=== PATIENT | male | born 1965 | race African-American/Black ===

== ENCOUNTER 2016-07-07 13:17 | Inpatient (IN) | payer OTHER ==
[~2016-07-07] VITALS: Ht 180.3 cm; Wt 111.8 kg
[2016-07-07 13:30] VITALS: BP 155/91
[2016-07-07] MEDS ORDERED: PredniSONE 20mg tab ORAL ONE (13:30)
[2016-07-07] MEDS ORDERED: Ipratropium 0.02% Inh Soln 2.5ml UD HHN ONE (13:30)
[2016-07-07] MEDS ORDERED: Albuterol ud Inhalation HHN ONE (13:30)
--- NOTE | 2016-07-07 13:30 | Emergency Room Report ---
History of Present Illness General Chief Complaint: Dyspnea/Respdistress Source: Patient (RICHARDSON BALDERAS D.O.) Present Illness HPI Patient presents with complaints of shortness of breath Reports that he has been diagnosed with COPD in the past Has had increased cough and mild sputum production over the past few days Denies any chest pain or pleurisy denies any recent travel denies any fevers or chills Denies any neck pain or photophobia (RICHARDSON BALDERAS D.O.) Allergies: Coded Allergies: No Known Allergies (Unverified , 07/07/16) Patient History Past Medical History: see triage record Pertinent Family History: none Reviewed Nursing Documentation: PMH: Agreed, PSxH: Agreed (RICHARDSON BALDERAS D.O.) Nursing Documentation-PMH Past Medical History: No Stated History (RICHARDSON BALDERAS D.O.) Review of Systems All Other Systems: negative except mentioned in HPI (RICHARDSON BALDERAS D.O.) Physical Exam Vital Signs Date Time Temp Pulse Resp B/P Pulse Ox O2 Delivery O2 Flow Rate FiO2 07/07/16 13:22 98.4 101 21 148/105 98 Room Air Sp02 EP Interpretation: reviewed, normal General Appearance: well appearing, no apparent distress Head: normocephalic, atraumatic Eyes: bilateral eye EOMI, bilateral eye PERRL ENT: hearing grossly normal, normal pharynx, TMs + canals normal, uvula midline Neck: full range of motion, supple, no meningismus, no bony tend Respiratory: no rhonchi, no respiratory distress, no retraction, no accessory muscle use, wheezing - Fine wheezing in both lower lobes no obvious retractions Cardiovascular #1: normal peripheral pulses, regular rate, rhythm, no edema, no gallop, no JVD, no murmur Gastrointestinal: normal bowel sounds, non tender, soft, no mass, no organomegaly, non-distended, no guarding, no hernia, no pulsatile mass, no rebound Genitourinary: no CVA tenderness Neurologic: oriented x3, responsive, geography department chair III-XII nml as tested, motor strength/ tone normal, sensory intact Psychiatric: mood/affect normal Skin: normal color, no rash, warm/dry, palpation normal Lymphatic: normal inspection, no adenopathy (JAMEHDOR,ALI D.O.) Medical Decision Making Diagnostic Impression: Primary Impression: CHF exacerbation Qualified Codes: I50.9 - Heart failure, unspecified Additional Impression: Substance abuse ER Course Hospital Course 51-year-old male presents ED complaining of shortness of breath Clinical course Patient initially seen and evaluated by Dr Balderas. Please see his note for full history and physical labs reviewed- noted leukocytosis, hemoglobin/hematocrit stable, creatinine elevated, troponins negative, BNP elevated utox + multiple substances Chest x-ray- cardiomegaly, left-sided atelectasis Antibiotics given. Lasix given. Case discussed with Dr. Bui and he agreed to accept the patient to his service for further care and support I. I feel this is a highly complex case requiring extensive working including EKG/Rhythm strip, Xray/CT/US, Blood/urine lab work, repeat exams while in ED, and administration of strong opiates/narcotics for pain control, admission to hospital or close patient follow up. Diagnosis - CHF exacerbation, substance abuse admitted to telemetry in serious condition Labs Test 07/07/16 14:43 07/07/16 14:49 White Blood Count 14.9 K/UL (4.8-10.8) Red Blood Count 4.91 M/UL (4.70-6.10) Hemoglobin 14.0 G/DL (14.2-18.0) Hematocrit 45.9 % (42.0-52.0) Mean Corpuscular Volume 93 FL (80-99) Mean Corpuscular Hemoglobin 28.6 PG (27.0-31.0) Mean Corpuscular Hemoglobin Concent 30.6 G/DL (32.0-36.0) Red Cell Distribution Width 14.7 % (11.6-14.8) Platelet Count 319 K/UL (150-450) Mean Platelet Volume 7.7 FL (6.5-10.1) Neutrophils (%) (Auto) 67.8 % (45.0-75.0) Lymphocytes (%) (Auto) 21.6 % (20.0-45.0) Monocytes (%) (Auto) 8.3 % (1.0-10.0) Eosinophils (%) (Auto) 1.7 % (0.0-3.0) Basophils (%) (Auto) 0.6 % (0.0-2.0) Sodium Level 138 mEQ/L (135-145) Potassium Level 3.6 mEQ/L (3.4-4.9) Chloride Level 99 mEQ/L (98-107) Carbon Dioxide Level 24 mEQ/L (20-30) Anion Gap 15 (5-15) Blood Urea Nitrogen 10 mg/dL (7-23) Creatinine 1.0 mg/dL (0.7-1.2) Estimat Glomerular Filtration Rate > 60 mL/min (>60) Glucose Level 109 mg/dL (74-106) Calcium Level 8.6 mg/dL (8.6-10.2) Total Bilirubin 0.4 mg/dL (0.0-1.2) Aspartate Amino Transf (AST/SGOT) 15 U/L (5-40) Alanine Aminotransferase (ALT/SGPT) 10 U/L (3-41) Alkaline Phosphatase 85 U/L (40-129) Total Creatine Kinase 353 U/L (38-174) Creatine Kinase MB 3.9 ng/mL (< 6.7) Creatine Kinase MB Relative Index 1.1 Troponin I < 0.30 ng/mL (<=0.30) Pro-B-Type Natriuretic Peptide 1495 pg/mL (0-125) Total Protein 7.3 g/dL (6.6-8.7) Albumin 3.6 g/dL (3.5-5.2) Globulin 3.7 g/dL Albumin/Globulin Ratio 0.9 (1.0-2.7) Urine Opiates Screen Negative (NEGATIVE) Urine Barbiturates Screen Negative (NEGATIVE) Phencyclidine (PCP) Screen Positive (NEGATIVE) Urine Amphetamines Screen Positive (NEGATIVE) Urine Benzodiazepines Screen Negative (NEGATIVE) Urine Cocaine Screen Negative (NEGATIVE) Urine Marijuana (THC) Screen Positive (NEGATIVE) (BENEDICT MARCOS M.D.) EKG Diagnostic Results Rate: normal Rhythm: NSR ST Segments: no acute changes ASA given to the pt in ED: No (BENEDICT MARCOS M.D.) Rhythm Strip Diag. Results EP Interpretation: yes Rhythm: NSR, no PVC's, no ectopy (BENEDICT MARCOS M.D.) Chest X-Ray Diagnostic Results EP Interpretation: No Findings: no pneumothorax, no acute cardiopulmonary disease, other - cardiomegaly. atelectasis. Number of Views: 1 (BENEDICT MARCOS M.D.) Last Vital Signs Date Time Temp Pulse Resp B/P Pulse Ox O2 Delivery O2 Flow Rate FiO2 07/07/16 13:22 98.4 101 21 148/105 98 Room Air (RICHARDSON BALDERAS D.O.) Status: improved (BENEDICT MARCOS M.D.) Disposition: ADMITTED INPATIENT Condition: Serious RICHARDSON BALDERAS D.O. Jul 07, 2016 13:30 BENEDICT MARCOS M.D. Jul 07, 2016 17:17
--- NOTE | 2016-07-07 14:34 | Diagnostic Imaging Report ---
Indication: SOB Technique: One view of the chest Comparison: none Findings: Heart is enlarged. Atelectatic changes of the left midlung are noted. Lungs and pleural spaces are otherwise clear Impression: Cardiomegaly No acute process
[2016-07-07 14:58] LABS: BASOPHILS % (AUTO) 0.6 % (0.0-2.0); EOSINOPHILS % (AUTO) 1.7 % (0.0-3.0); LYMPHOCYTES % (AUTO) 21.6 % (20.0-45.0); MEAN CORPUSCULAR HEMOGLOBIN 28.6 PG (27.0-31.0); MEAN CORPUSCULAR HGB CONC 30.6 G/DL (32.0-36.0); MEAN CORPUSCULAR VOLUME 93 FL (80-99); MEAN PLATELET VOLUME 7.7 FL (6.5-10.1); MONOCYTES % (AUTO) 8.3 % (1.0-10.0); NEUTROPHILS % (AUTO) 67.8 % (45.0-75.0); PLATELET COUNT 319 K/UL (150-450); RED BLOOD COUNT 4.91 M/UL (4.70-6.10); RED CELL DISTRIBUTION WIDTH 14.7 % (11.6-14.8); WHITE BLOOD COUNT 14.9 K/UL (4.8-10.8)
[2016-07-07 15:10] LABS: ALANINE AMINOTRANSFERASE 10 U/L (3-41); ALBUMIN/GLOBULIN RATIO 0.9 (1.0-2.7); ANION GAP 15 (5-15); ASPARTATE AMINO TRANSFERASE 15 U/L (5-40); CALCIUM 8.6 mg/dL (8.6-10.2); CARBON DIOXIDE 24 mEQ/L (20-30); CHLORIDE 99 mEQ/L (98-107); GLOMERULAR FILTRATION RATE > 60 mL/min (>60); HEMOLYSIS 3; POTASSIUM 3.6 mEQ/L (3.4-4.9); SODIUM 138 mEQ/L (135-145); TOTAL PROTEIN 7.3 g/dL (6.6-8.7); TROPONIN I < 0.30 ng/mL (<=0.30)
[2016-07-07 15:21] LABS: CKMB 3.9 ng/mL (< 6.7)
[2016-07-07 16:04] VITALS: BP 160/90
[2016-07-07] MEDS ORDERED: DuoNeb 0.5-3(2.5)mg/3ml neb HHN PRN (16:45)
[2016-07-07] MEDS ORDERED: Miralax 17gm pkt ORAL PRN (16:45)
[2016-07-07] MEDS ORDERED: NKM (16:53)
[2016-07-07 18:10] VITALS: BP 158/89
[2016-07-07 20:00] VITALS: BP 150/106
[2016-07-07] MEDS: Heparin 5000 units/ml inj SUBQ SCH (21:00)
--- NOTE | 2016-07-07 22:24 | Cardiology Progress Note ---
Assessment/Plan Assessment/Plan The patient is seen and examined, full consult note will be dictated. Objective Last 24 Hour Vital Signs Date Time Temp Pulse Resp B/P Pulse Ox O2 Delivery O2 Flow Rate FiO2 07/07/16 18:10 96.6 89 20 158/89 100 Room Air 07/07/16 17:45 102 22 150/128 99 Room Air 07/07/16 16:04 104 37 160/90 100 Room Air 07/07/16 13:50 97 38 100 Room Air 07/07/16 13:50 100 20 Room Air 07/07/16 13:30 97.6 99 33 155/91 100 Room Air 07/07/16 13:30 99 33 Room Air 07/07/16 13:22 98.4 101 21 148/105 98 Room Air Laboratory Tests Test 07/07/16 14:43 07/07/16 14:49 White Blood Count 14.9 K/UL (4.8-10.8) H Red Blood Count 4.91 M/UL (4.70-6.10) Hemoglobin 14.0 G/DL (14.2-18.0) L Hematocrit 45.9 % (42.0-52.0) Mean Corpuscular Volume 93 FL (80-99) Mean Corpuscular Hemoglobin 28.6 PG (27.0-31.0) Mean Corpuscular Hemoglobin Concent 30.6 G/DL (32.0-36.0) L Red Cell Distribution Width 14.7 % (11.6-14.8) Platelet Count 319 K/UL (150-450) Mean Platelet Volume 7.7 FL (6.5-10.1) Neutrophils (%) (Auto) 67.8 % (45.0-75.0) Lymphocytes (%) (Auto) 21.6 % (20.0-45.0) Monocytes (%) (Auto) 8.3 % (1.0-10.0) Eosinophils (%) (Auto) 1.7 % (0.0-3.0) Basophils (%) (Auto) 0.6 % (0.0-2.0) Sodium Level 138 mEQ/L (135-145) Potassium Level 3.6 mEQ/L (3.4-4.9) Chloride Level 99 mEQ/L (98-107) Carbon Dioxide Level 24 mEQ/L (20-30) Anion Gap 15 (5-15) Blood Urea Nitrogen 10 mg/dL (7-23) Creatinine 1.0 mg/dL (0.7-1.2) Estimat Glomerular Filtration Rate > 60 mL/min (>60) Glucose Level 109 mg/dL (74-106) H Calcium Level 8.6 mg/dL (8.6-10.2) Total Bilirubin 0.4 mg/dL (0.0-1.2) Aspartate Amino Transf (AST/SGOT) 15 U/L (5-40) Alanine Aminotransferase (ALT/SGPT) 10 U/L (3-41) Alkaline Phosphatase 85 U/L (40-129) Total Creatine Kinase 353 U/L (38-174) H Creatine Kinase MB 3.9 ng/mL (< 6.7) Creatine Kinase MB Relative Index 1.1 Troponin I < 0.30 ng/mL (<=0.30) Pro-B-Type Natriuretic Peptide 1495 pg/mL (0-125) H Total Protein 7.3 g/dL (6.6-8.7) Albumin 3.6 g/dL (3.5-5.2) Globulin 3.7 g/dL Albumin/Globulin Ratio 0.9 (1.0-2.7) L Urine Opiates Screen Negative (NEGATIVE) Urine Barbiturates Screen Negative (NEGATIVE) Phencyclidine (PCP) Screen Positive (NEGATIVE) H Urine Amphetamines Screen Positive (NEGATIVE) H Urine Benzodiazepines Screen Negative (NEGATIVE) Urine Cocaine Screen Negative (NEGATIVE) Urine Marijuana (THC) Screen Positive (NEGATIVE) H BARTOLO CARREON Jul 07, 2016 22:23
[2016-07-08] VITALS (7 sets, daily range): BP systolic 84–162; BP diastolic 46–98
[2016-07-08 08:06] LABS: BASOPHILS % (AUTO) 0.5 % (0.0-2.0); EOSINOPHILS % (AUTO) 0.2 % (0.0-3.0); LYMPHOCYTES % (AUTO) 10.4 % (20.0-45.0); MEAN CORPUSCULAR HEMOGLOBIN 29.3 PG (27.0-31.0); MEAN CORPUSCULAR HGB CONC 31.9 G/DL (32.0-36.0); MEAN CORPUSCULAR VOLUME 92 FL (80-99); MEAN PLATELET VOLUME 7.7 FL (6.5-10.1); MONOCYTES % (AUTO) 6.6 % (1.0-10.0); NEUTROPHILS % (AUTO) 82.3 % (45.0-75.0); PLATELET COUNT 310 K/UL (150-450); RED BLOOD COUNT 4.85 M/UL (4.70-6.10); RED CELL DISTRIBUTION WIDTH 14.3 % (11.6-14.8); WHITE BLOOD COUNT 17.6 K/UL (4.8-10.8)
[2016-07-08 08:52] LABS: ANION GAP 18 (5-15); CALCIUM 9.1 mg/dL (8.6-10.2); CARBON DIOXIDE 24 mEQ/L (20-30); CHLORIDE 100 mEQ/L (98-107); CREATININE 1.2 mg/dL (0.7-1.2); GLOMERULAR FILTRATION RATE > 60 mL/min (>60); HEMOLYSIS 5; POTASSIUM 3.2 mEQ/L (3.4-4.9); SODIUM 142 mEQ/L (135-145)
[2016-07-08] MEDS: Heparin 5000 units/ml inj SUBQ SCH ×2 (09:24→22:07)
--- NOTE | 2016-07-08 12:14 | Consultation ---
History of Present Illness General Date patient seen: Jul 08, 2016 Chief Complaint: Dyspnea/Respdistress Referring physician: Dr. Bui Reason for Consultation: dyspnea Present Illness HPI 51 year old male with hx of COPD, CHF presented to ER with complaints of shortness of breath cough and mild sputum production over the past few days Denies any chest pain or pleurisy denies any recent travel denies any fevers or chills. His CXR showed cardiomegaly and pulmonary edema. Allergies: Coded Allergies: No Known Allergies (Unverified , 07/07/16) Medication History Scheduled No Known Medications* (NKM - No Known Medications*), 0 ., (Reported) Patient History Healthcare decision maker Resuscitation status Advanced Directive on File Past Medical/Surgical History Past Medical/Surgical History: (1) COPD (chronic obstructive pulmonary disease) (2) Substance abuse Review of Systems Respiratory: Reports: shortness of breath, sputum All Other Systems: negative except mentioned in HPI Physical Exam General Appearance: WD/WN, no apparent distress Lines, tubes and drains: peripheral HEENT: normocephalic, atraumatic Neck: non-tender, normal alignment Respiratory/Chest: rhonchi - bilaterally Cardiovascular/Chest: normal peripheral pulses, normal rate, regular rhythm Abdomen: normal bowel sounds Genitourinary/Rectal: normal genital exam, normal rectal exam Extremities: normal range of motion, non-tender Skin Exam: normal pigmentation, warm/dry Last 24 Hour Vital Signs Date Time Temp Pulse Resp B/P Pulse Ox O2 Delivery O2 Flow Rate FiO2 07/08/16 11:44 118/62 07/08/16 11:20 97.2 89 20 118/62 96 Room Air 07/08/16 09:26 93/53 07/08/16 07:50 93/53 07/08/16 07:40 98.1 71 20 84/46 95 Room Air 07/08/16 06:10 162/98 07/08/16 05:51 155/98 07/08/16 00:00 159/98 07/08/16 00:00 98.0 100 20 155/98 95 Room Air 07/07/16 20:00 98.2 101 20 150/106 96 Room Air 07/07/16 18:10 96.6 89 20 158/89 100 Room Air 07/07/16 17:45 102 22 150/128 99 Room Air 07/07/16 16:04 104 37 160/90 100 Room Air 07/07/16 13:50 97 38 100 Room Air 07/07/16 13:50 100 20 Room Air 07/07/16 13:30 97.6 99 33 155/91 100 Room Air 07/07/16 13:30 99 33 Room Air 07/07/16 13:22 98.4 101 21 148/105 98 Room Air Intake and Output 07/07/16 07/08/16 19:00 07:00 Intake Total 100 ml 400 ml Output Total 1900 ml 2600 ml Balance -1800 ml -2200 ml Intake Oral 100 ml Other 400 ml Output Urine Total 1900 ml 2600 ml Laboratory Tests Test 07/07/16 14:43 07/07/16 14:49 07/08/16 06:25 White Blood Count 14.9 K/UL (4.8-10.8) H 17.6 K/UL (4.8-10.8) H Red Blood Count 4.91 M/UL (4.70-6.10) 4.85 M/UL (4.70-6.10) Hemoglobin 14.0 G/DL (14.2-18.0) L 14.2 G/DL (14.2-18.0) Hematocrit 45.9 % (42.0-52.0) 44.5 % (42.0-52.0) Mean Corpuscular Volume 93 FL (80-99) 92 FL (80-99) Mean Corpuscular Hemoglobin 28.6 PG (27.0-31.0) 29.3 PG (27.0-31.0) Mean Corpuscular Hemoglobin Concent 30.6 G/DL (32.0-36.0) L 31.9 G/DL (32.0-36.0) L Red Cell Distribution Width 14.7 % (11.6-14.8) 14.3 % (11.6-14.8) Platelet Count 319 K/UL (150-450) 310 K/UL (150-450) Mean Platelet Volume 7.7 FL (6.5-10.1) 7.7 FL (6.5-10.1) Neutrophils (%) (Auto) 67.8 % (45.0-75.0) 82.3 % (45.0-75.0) H Lymphocytes (%) (Auto) 21.6 % (20.0-45.0) 10.4 % (20.0-45.0) L Monocytes (%) (Auto) 8.3 % (1.0-10.0) 6.6 % (1.0-10.0) Eosinophils (%) (Auto) 1.7 % (0.0-3.0) 0.2 % (0.0-3.0) Basophils (%) (Auto) 0.6 % (0.0-2.0) 0.5 % (0.0-2.0) Sodium Level 138 mEQ/L (135-145) 142 mEQ/L (135-145) Potassium Level 3.6 mEQ/L (3.4-4.9) 3.2 mEQ/L (3.4-4.9) L Chloride Level 99 mEQ/L (98-107) 100 mEQ/L (98-107) Carbon Dioxide Level 24 mEQ/L (20-30) 24 mEQ/L (20-30) Anion Gap 15 (5-15) 18 (5-15) H Blood Urea Nitrogen 10 mg/dL (7-23) 18 mg/dL (7-23) Creatinine 1.0 mg/dL (0.7-1.2) 1.2 mg/dL (0.7-1.2) Estimat Glomerular Filtration Rate > 60 mL/min (>60) > 60 mL/min (>60) Glucose Level 109 mg/dL (74-106) H 103 mg/dL (74-106) Calcium Level 8.6 mg/dL (8.6-10.2) 9.1 mg/dL (8.6-10.2) Total Bilirubin 0.4 mg/dL (0.0-1.2) Aspartate Amino Transf (AST/SGOT) 15 U/L (5-40) Alanine Aminotransferase (ALT/SGPT) 10 U/L (3-41) Alkaline Phosphatase 85 U/L (40-129) Total Creatine Kinase 353 U/L (38-174) H Creatine Kinase MB 3.9 ng/mL (< 6.7) Creatine Kinase MB Relative Index 1.1 Troponin I < 0.30 ng/mL (<=0.30) Pro-B-Type Natriuretic Peptide 1495 pg/mL (0-125) H Total Protein 7.3 g/dL (6.6-8.7) Albumin 3.6 g/dL (3.5-5.2) 3.5 g/dL (3.5-5.2) Globulin 3.7 g/dL Albumin/Globulin Ratio 0.9 (1.0-2.7) L Urine Opiates Screen Negative (NEGATIVE) Urine Barbiturates Screen Negative (NEGATIVE) Phencyclidine (PCP) Screen Positive (NEGATIVE) H Urine Amphetamines Screen Positive (NEGATIVE) H Urine Benzodiazepines Screen Negative (NEGATIVE) Urine Cocaine Screen Negative (NEGATIVE) Urine Marijuana (THC) Screen Positive (NEGATIVE) H Phosphorus Level 3.0 mg/dL (2.5-4.8) Height (Feet): 5 Height (Inches): 10.00 Weight (Pounds): 240 Medications Current Medications Medications (Trade) Dose Ordered Sig/Mer Route PRN Reason Start Time Stop Time Status Last Admin Dose Admin Acetaminophen (Tylenol) 650 mg Q4H PRN ORAL Fever 07/07/16 16:45 08/06/16 16:44 Albuterol/ Ipratropium (DuoNeb 0.5-3(2.5)mg/3ml) 3 ml EVERY 4 HOURS PRN HHN Shortness of Breath 07/07/16 16:45 07/12/16 16:44 Clonidine HCl (Catapres) 0.1 mg Q6H PRN ORAL For High Blood Pressure 07/08/16 06:45 08/07/16 06:44 Dextrose (Dextrose 50%) STAT PRN IV Hypoglycemia 07/07/16 16:45 08/06/16 16:44 Furosemide (Lasix) 40 mg EVERY 8 HOURS IV 07/07/16 22:00 08/06/16 21:59 07/08/16 05:52 Heparin Sodium (Porcine) (Heparin 5000 units/ml) 5,000 units EVERY 12 HOURS SUBQ 07/07/16 21:00 08/06/16 20:59 07/08/16 09:24 Irbesartan (Avapro) 75 mg DAILY ORAL 07/08/16 09:00 08/07/16 08:59 07/08/16 09:26 Isosorbide Dinitrate (Isordil) 10 mg Q6HR ORAL 07/08/16 00:00 08/07/16 00:00 07/08/16 11:44 Ondansetron HCl (Zofran) 4 mg Q6H PRN IVP Nausea & Vomiting 07/07/16 16:45 08/06/16 16:44 Polyethylene Glycol (Miralax) 17 gm DAILYPRN PRN ORAL Constipation 07/07/16 16:45 08/06/16 16:44 Temazepam (Restoril) 15 mg HSPRN PRN ORAL Insomnia 07/07/16 16:45 07/14/16 16:44 Assessment/Plan Problem List: (1) Respiratory failure, acute ICD Codes: J96.00 - Acute respiratory failure, unspecified whether with hypoxia or hypercapnia SNOMED: 69116248 (2) CHF exacerbation ICD Codes: I50.9 - Heart failure, unspecified SNOMED: 55716939 Qualifiers: Qualified Codes: I50.9 - Heart failure, unspecified (3) COPD (chronic obstructive pulmonary disease) ICD Codes: J44.9 - Chronic obstructive pulmonary disease, unspecified SNOMED: 06280583 (4) Substance abuse ICD Codes: F19.10 - Other psychoactive substance abuse, uncomplicated SNOMED: 60010607 Assessment/Plan respiratory treatment IV antibiotic echocardiogram check sputum cardiology evaluation RIVER CHAUDHARI Jul 08, 2016 12:13
[2016-07-08] MEDS ORDERED: Promethazine/Codeine 5ml UD ORAL PRN (12:15)
--- NOTE | 2016-07-08 16:12 | General Progress Note ---
Progress Note Progress Note patient seen and examined full consult dictated [id number] ANETTE CHOWDHURY Jul 08, 2016 16:12
[2016-07-08 17:55] LABS: TROPONIN I < 0.30 ng/mL (<=0.30)
--- NOTE | 2016-07-08 21:48 | History and Physical Report ---
DATE OF ADMISSION: 07/07/2016 TIME SEEN: At 10 a.m. ATTENDING PHYSICIAN: Shadi Bui D.O. CONSULTANTS: 1. Brian Sargent M.D. 2. Marisabel Hartman M.D. CHIEF COMPLAINT: Shortness of breath. BRIEF HISTORY: This is a 51-year-old male who lives at home, presented to [facility] with increased shortness of breath, diagnosed with CHF exacerbation and hypertension, admitted to telemetry for further care. Currently, calm in his bed, . No complaint otherwise. REVIEW OF SYSTEMS: No chest pain. No shortness of breath. No nausea, vomiting, or diarrhea. PAST MEDICAL HISTORY: Hypertension and CHF. PAST SURGICAL HISTORY: None. MEDICATIONS: Include , Catapres, Isordil, Lasix, Restoril, MiraLax, Tylenol, Zofran, and DuoNeb. ALLERGIES: Denies. SOCIAL HISTORY: Positive smoking. Positive alcohol. Positive methamphetamine use. PHYSICAL EXAMINATION: GENERAL: Calm in bed, oriented x3, in no acute distress. VITAL SIGNS: Temperature is 98 degrees, pulse 81, respirations 18, and blood pressure 93/52. CARDIOVASCULAR: No murmur. LUNGS: Poor air exchange. ABDOMEN: Positive bowel sound. Nontender and nondistended. EXTREMITIES: No edema. LABORATORY AND DIAGNOSTIC DATA: White count 17, otherwise CBC is normal. BMP showed potassium 3.2. Urine toxicology is positive for phencyclidine, amphetamine, and marijuana. ASSESSMENT: 1. Congestive heart failure exacerbation. 2. Shortness of breath 3. Hypertension. 4. Drug abuse. PLAN: O2 and pulmonary treatment. Blood pressure control. Dietary follow. CBC and BMP in the morning. Detoxification. Dr. Hartman, Dr. Sargent, Dr. Olivares, and Dr. Lawson to consult. Shadi Bui D.O. DR: Carlos JOB#: [id number] CC:
[2016-07-09] VITALS (7 sets, daily range): BP systolic 92–134; BP diastolic 58–76
--- NOTE | 2016-07-09 05:08 | Consultation ---
DATE OF CONSULTATION: 07/08/2016 NEPHROLOGY CONSULTATION CONSULTING PHYSICIAN: Svetlana Olivares M.D. REFERRING PHYSICIAN: Shadi Bui D.O. REASON FOR CONSULTATION: Acute renal failure and hypokalemia. HISTORY OF PRESENT ILLNESS: The patient is a 51-year-old male with past medical history significant for COPD, CHF, and substance abuse, who presented to emergency room complaining of increasing shortness of breath and orthopnea had a complete evaluation, found to have atelectasis and found to be hypoxic. The patient received IV antibiotic and received a breathing treatment and a dose of Lasix treatment. Later on, the patient was admitted in the hospital. I was called for management of renal disease and electrolyte imbalance. PAST MEDICAL HISTORY: Includin. History of polysubstance abuse. 2. History of CHF. 3. History of COPD. 4. History of heart disease. HOME MEDICATIONS: None. CURRENT MEDICATIONS: Includin. Albuterol and Atrovent p.r.n. shortness of breath. 2. Lasix. 3. Heparin. 4. Avapro. 5. Isordil. 6. Levaquin. 7. Zofran. 8. MiraLax. 9. Promethazine. 10. Restoril. ALLERGIES: Not known drug allergies. FAMILY HISTORY: Negative for any history of premature heart disease. REVIEW OF SYSTEMS: General: Complaining of generalized weakness. Denied any fever, chills, or night sweats. Head And Neck: Denies any dysphagia, odynophagia, blurry vision, headache, or neck stiffness. Pulmonary: Complaining of shortness of breath. No cough. No sputum. Cardiovascular: Complaining of shortness of breath, orthopnea, PND, and leg swelling. Gastrointestinal: Denied any nausea, vomiting, diarrhea, hematemesis, or hematochezia. Genitourinary: Denies any dysuria, frequency, or hematuria. Musculoskeletal: He is complaining of generalized weakness. Denies any localized weakness or numbness. PHYSICAL EXAMINATION: VITAL SIGNS: The patient has temperature of 97 degrees, blood pressure of 115/78, pulse is 94, and respiratory rate of 18. HEENT AND NECK: No JVP. No LAD. No thyromegaly. Extraocular movement intact. Pupils are reactive to light and accommodation. LUNGS: Decreased breathing sounds on both sides. CARDIAC: Regular rate and rhythm. S1 and S2. No murmur. No rub. ABDOMEN: Soft, nontender, and nondistended. EXTREMITIES: Trace edema. No clubbing. No cyanosis. NEUROLOGIC: Cranial nerves II to XII within normal limits. Upper and lower extremities are grossly intact. LABORATORY DATA: The patient has WBC count of 14.9, hemoglobin of 14, hematocrit of 45, and platelet count of 319,000. Chemistry revealed sodium of 142, potassium 3.2, chloride 100, bicarbonate 24, BUN of 18, creatinine of 1.2, and glucose of 103. AST of 15 and ALT of 10. Troponin is negative. BNP is 1495. Urine toxicology is positive for amphetamine and marijuana. There is no UA. ASSESSMENT: 1. Possible fluid overload and congestive heart failure. 2. Hypokalemia. 3. Acute renal failure. PLAN: Plan for the patient is to: 1. Obtain a UA. 2. Check the random urine protein-creatinine ratio to calculate the proteinuria. 3. Check the urine sodium and creatinine to calculate fractional excretion of sodium. 4. Continue with current antihypertensive medication. 5. Monitoring intakes and outputs. Again, I would like to thank Dr. Bui for allowing me to participate in the care of this patient. Bobo Zapien JOB#: [id number] CC:
--- NOTE | 2016-07-09 08:02 | General Progress Note ---
Assessment/Plan Problem List: (1) CHF exacerbation ICD Codes: I50.9 - Heart failure, unspecified SNOMED: 26982079 Qualifiers: Qualified Codes: I50.9 - Heart failure, unspecified (2) Substance abuse ICD Codes: F19.10 - Other psychoactive substance abuse, uncomplicated SNOMED: 13398786 (3) Dyspnea ICD Codes: R06.00 - Dyspnea, unspecified SNOMED: 726444098 (4) COPD (chronic obstructive pulmonary disease) ICD Codes: J44.9 - Chronic obstructive pulmonary disease, unspecified SNOMED: 96375130 (5) Respiratory failure, acute ICD Codes: J96.00 - Acute respiratory failure, unspecified whether with hypoxia or hypercapnia SNOMED: 42646057 Status: stable, progressing, tolerating diet Assessment/Plan o2 pulm tx detox cbc bmp am Subjective Constitutional: Reports: weakness Respiratory: Reports: shortness of breath Allergies: Coded Allergies: No Known Allergies (Unverified , 07/07/16) All Systems: reviewed and negative except above Subjective sitting on bed calm Objective Last 24 Hour Vital Signs Date Time Temp Pulse Resp B/P Pulse Ox O2 Delivery O2 Flow Rate FiO2 07/09/16 06:44 81 18 Room Air 07/09/16 06:39 110/74 07/09/16 04:00 92 07/09/16 04:00 97.7 46 18 105/71 95 Room Air 07/09/16 00:14 119/72 07/09/16 00:00 101 07/09/16 00:00 97.7 95 18 112/71 95 Room Air 07/08/16 20:00 91 07/08/16 20:00 97.7 93 18 105/78 95 Room Air 07/08/16 19:35 75 18 Room Air 07/08/16 16:57 115/78 07/08/16 16:00 87 07/08/16 15:34 97.7 94 20 115/78 95 Room Air 07/08/16 12:00 97 07/08/16 11:44 118/62 07/08/16 11:20 97.2 89 20 118/62 96 Room Air 07/08/16 09:26 93/53 Intake and Output 07/08/16 07/09/16 19:00 07:00 Intake Total 390 ml Output Total 1950 ml 1200 ml Balance -1560 ml -1200 ml Intake Oral 390 ml Output Urine Total 1950 ml 1200 ml Laboratory Tests 07/08/16 16:48: Troponin I < 0.30 Height (Feet): 5 Height (Inches): 11.00 Weight (Pounds): 239 General Appearance: alert EENT: normal ENT inspection Neck: normal alignment Cardiovascular: normal peripheral pulses, normal rate, regular rhythm Respiratory/Chest: chest wall non-tender, lungs clear, normal breath sounds Abdomen: normal bowel sounds, non tender, soft Extremities: normal inspection Edema: no edema noted Arm (L), no edema noted Arm (R), no edema noted Leg (L), no edema noted Leg (R), no edema noted Pedal (L), no edema noted Pedal (R), no edema noted Generalized Neurologic: responsive, motor weakness Skin: normal pigmentation, warm/dry CHERISE JAMES Jul 09, 2016 08:02
[2016-07-09] MEDS: Heparin 5000 units/ml inj SUBQ SCH ×2 (08:29→20:51)
[2016-07-09 08:38] LABS: BASOPHILS % (AUTO) 1.3 % (0.0-2.0); EOSINOPHILS % (AUTO) 1.9 % (0.0-3.0); LYMPHOCYTES % (AUTO) 27.9 % (20.0-45.0); MEAN CORPUSCULAR HEMOGLOBIN 29.3 PG (27.0-31.0); MEAN CORPUSCULAR HGB CONC 31.6 G/DL (32.0-36.0); MEAN CORPUSCULAR VOLUME 93 FL (80-99); MEAN PLATELET VOLUME 7.7 FL (6.5-10.1); MONOCYTES % (AUTO) 8.1 % (1.0-10.0); NEUTROPHILS % (AUTO) 60.8 % (45.0-75.0); PLATELET COUNT 327 K/UL (150-450); RED BLOOD COUNT 5.48 M/UL (4.70-6.10); RED CELL DISTRIBUTION WIDTH 14.6 % (11.6-14.8)
[2016-07-09 08:56] LABS: ANION GAP 17 (5-15); CALCIUM 9.2 mg/dL (8.6-10.2); CARBON DIOXIDE 24 mEQ/L (20-30); CHLORIDE 99 mEQ/L (98-107); CREATININE 1.2 mg/dL (0.7-1.2); GLOMERULAR FILTRATION RATE > 60 mL/min (>60); HEMOLYSIS 5; POTASSIUM 3.5 mEQ/L (3.4-4.9); SODIUM 140 mEQ/L (135-145)
--- NOTE | 2016-07-09 09:46 | Diagnostic Imaging Report ---
Indications: DYSPNEA Technique: Portable AP chest Findings: Comparison: 07/07/16 Inspiratory effort has improved. Cardiomegaly, pulmonary vascular redistribution, bilateral interstitial infiltrates persist, decreased. Linear densities persist in left midlung. Left lung volume remains decreased compared to right. Elevation of left hemidiaphragm persists. No new abnormality identified. IMPRESSION: Improvement in bilateral congestive changes Persistent left midlung subsegmental atelectasis versus scarring and parenchymal volume loss
[2016-07-09] MEDS ORDERED: D5W 275ml ONE (11:14)
[2016-07-09] MEDS ORDERED: Tubing IV Secondary IV ONE (11:14)
[2016-07-09] MEDS ORDERED: NS 275ml ONE (11:14)
[2016-07-09 16:52] LABS: TROPONIN I < 0.30 ng/mL (<=0.30)
--- NOTE | 2016-07-09 18:10 | Nephrology Progress Note ---
Assessment/Plan Assessment 1. Possible fluid overload and congestive heart failure. 2. Hypokalemia. 3. Acute renal failure Plan continue lasix check in put and out fallow up with urine study avoid NSAID Replace electrolyte as need it Subjective Constitutional: Reports: no symptoms HEENT: Reports: no symptoms Genitourinary: Reports: no symptoms Neurologic/Psychiatric: Reports: no symptoms Objective Objective Last 24 Hour Vital Signs Date Time Temp Pulse Resp B/P Pulse Ox O2 Delivery O2 Flow Rate FiO2 07/09/16 17:27 92/58 07/09/16 15:29 96.4 100 20 92/58 98 Room Air 07/09/16 12:00 100 07/09/16 11:32 97.7 98 20 123/76 98 Room Air 07/09/16 11:18 117/59 07/09/16 08:28 117/59 07/09/16 08:00 90 07/09/16 08:00 98.1 56 20 117/59 96 07/09/16 06:44 81 18 Room Air 07/09/16 06:39 110/74 07/09/16 04:00 92 07/09/16 04:00 97.7 46 18 105/71 95 Room Air 07/09/16 00:14 119/72 07/09/16 00:00 101 07/09/16 00:00 97.7 95 18 112/71 95 Room Air 07/08/16 20:00 91 07/08/16 20:00 97.7 93 18 105/78 95 Room Air 07/08/16 19:35 75 18 Room Air Intake and Output 07/08/16 07/09/16 19:00 07:00 Intake Total 390 ml Output Total 1950 ml 1200 ml Balance -1560 ml -1200 ml Intake Oral 390 ml Output Urine Total 1950 ml 1200 ml Laboratory Tests 07/09/16 07:20: White Blood Count 13.0H, Red Blood Count 5.48, Hemoglobin 16.1, Hematocrit 50.8 , Mean Corpuscular Volume 93, Mean Corpuscular Hemoglobin 29.3, Mean Corpuscular Hemoglobin Concent 31.6L, Red Cell Distribution Width 14.6, Platelet Count 327, Mean Platelet Volume 7.7, Neutrophils (%) (Auto) 60.8, Lymphocytes (%) (Auto) 27.9, Monocytes (%) (Auto) 8.1, Eosinophils (%) (Auto) 1.9, Basophils (%) (Auto) 1.3, Sodium Level 140, Potassium Level 3.5, Chloride Level 99, Carbon Dioxide Level 24, Anion Gap 17H, Blood Urea Nitrogen 19, Creatinine 1.2, Estimat Glomerular Filtration Rate > 60, Glucose Level 106, Calcium Level 9.2 07/09/16 16:25: Troponin I < 0.30 Height (Feet): 5 Height (Inches): 11.00 Weight (Pounds): 239 Objective HEENT AND NECK: No JVP. No LAD. No thyromegaly. Extraocular movement intact. Pupils are reactive to light and accommodation. LUNGS: Decreased breathing sounds on both sides. CARDIAC: Regular rate and rhythm. S1 and S2. No murmur. No rub. ABDOMEN: Soft, nontender, and nondistended. EXTREMITIES: Trace edema. No clubbing. No cyanosis. NEUROLOGIC: Cranial nerves II to XII within normal limits. Upper and lower extremities are grossly intact. ANETTE CHOWDHURY Jul 09, 2016 18:09
--- NOTE | 2016-07-09 18:47 | Pulmonology Progress Note ---
Assessment/Plan Problems: (1) Respiratory failure, acute (2) CHF exacerbation (3) COPD (chronic obstructive pulmonary disease) (4) Substance abuse Assessment/Plan decrease lasix to bid repeat cxr showed imrovement Echo shows EF of 30 optimize cardiac meds Subjective ROS Limited/Unobtainable: No Interval Events: comfortable, less short of breath Allergies: Coded Allergies: No Known Allergies (Unverified , 07/07/16) Objective Last 24 Hour Vital Signs Date Time Temp Pulse Resp B/P Pulse Ox O2 Delivery O2 Flow Rate FiO2 07/09/16 18:25 120/66 07/09/16 17:27 92/58 07/09/16 16:00 107 07/09/16 15:29 96.4 100 20 92/58 98 Room Air 07/09/16 12:00 100 07/09/16 11:32 97.7 98 20 123/76 98 Room Air 07/09/16 11:18 117/59 07/09/16 08:28 117/59 07/09/16 08:00 90 07/09/16 08:00 98.1 56 20 117/59 96 07/09/16 06:44 81 18 Room Air 07/09/16 06:39 110/74 07/09/16 04:00 92 07/09/16 04:00 97.7 46 18 105/71 95 Room Air 07/09/16 00:14 119/72 07/09/16 00:00 101 07/09/16 00:00 97.7 95 18 112/71 95 Room Air 07/08/16 20:00 91 07/08/16 20:00 97.7 93 18 105/78 95 Room Air 07/08/16 19:35 75 18 Room Air Intake and Output 07/08/16 07/09/16 19:00 07:00 Intake Total 390 ml Output Total 1950 ml 1200 ml Balance -1560 ml -1200 ml Intake Oral 390 ml Output Urine Total 1950 ml 1200 ml Objective General Appearance: WD/WN HEENT: normocephalic, atraumatic Respiratory/Chest: chest wall non-tender, lungs clear Cardiovascular: normal peripheral pulses, normal rate, regular rhythm Abdomen: normal bowel sounds, soft, non tender, no organomegaly Extremities: no cyanosis, no clubbing Skin: no rash, no lesions Neurologic/Psychiatric: stem lead former II-XII grossly normal Lymphatic: no neck adenopathy, no groin adenopathy Microbiology Date/Time Source Procedure Growth Status 07/08/16 18:00 Sputum Gram Stain - Final Resulted 07/08/16 18:00 Sputum Sputum Culture - Preliminary NO GROWTH Resulted Laboratory Tests 07/09/16 07:20: White Blood Count 13.0H, Red Blood Count 5.48, Hemoglobin 16.1, Hematocrit 50.8 , Mean Corpuscular Volume 93, Mean Corpuscular Hemoglobin 29.3, Mean Corpuscular Hemoglobin Concent 31.6L, Red Cell Distribution Width 14.6, Platelet Count 327, Mean Platelet Volume 7.7, Neutrophils (%) (Auto) 60.8, Lymphocytes (%) (Auto) 27.9, Monocytes (%) (Auto) 8.1, Eosinophils (%) (Auto) 1.9, Basophils (%) (Auto) 1.3, Sodium Level 140, Potassium Level 3.5, Chloride Level 99, Carbon Dioxide Level 24, Anion Gap 17H, Blood Urea Nitrogen 19, Creatinine 1.2, Estimat Glomerular Filtration Rate > 60, Glucose Level 106, Calcium Level 9.2 07/09/16 16:25: Troponin I < 0.30 Current Medications Medications (Trade) Dose Ordered Sig/Mer Route PRN Reason Start Time Stop Time Status Last Admin Dose Admin Acetaminophen (Tylenol) 650 mg Q4H PRN ORAL Fever 07/07/16 16:45 08/06/16 16:44 Albuterol/ Ipratropium (DuoNeb 0.5-3(2.5)mg/3ml) 3 ml EVERY 4 HOURS PRN HHN Shortness of Breath 07/07/16 16:45 07/12/16 16:44 Clonidine HCl (Catapres) 0.1 mg Q6H PRN ORAL For High Blood Pressure 07/08/16 06:45 08/07/16 06:44 Dextrose (Dextrose 50%) STAT PRN IV Hypoglycemia 07/07/16 16:45 08/06/16 16:44 Furosemide (Lasix) 40 mg EVERY 8 HOURS IV 07/07/16 22:00 08/06/16 21:59 07/09/16 13:50 Heparin Sodium (Porcine) (Heparin 5000 units/ml) 5,000 units EVERY 12 HOURS SUBQ 07/07/16 21:00 08/06/16 20:59 07/09/16 08:29 Irbesartan (Avapro) 75 mg DAILY ORAL 07/08/16 09:00 08/07/16 08:59 07/09/16 08:28 Isosorbide Dinitrate (Isordil) 10 mg Q6HR ORAL 07/08/16 00:00 08/07/16 00:00 07/09/16 17:27 Levofloxacin (Levaquin) 100 ml @ 100 mls/hr Q24H IVPB 07/08/16 14:00 07/15/16 13:59 07/09/16 13:41 Ondansetron HCl (Zofran) 4 mg Q6H PRN IVP Nausea & Vomiting 07/07/16 16:45 08/06/16 16:44 Polyethylene Glycol (Miralax) 17 gm DAILYPRN PRN ORAL Constipation 07/07/16 16:45 08/06/16 16:44 Promethazine HCl/ Codeine 5 ml 5 ml Q4H PRN ORAL For Cough 07/08/16 12:15 08/07/16 12:14 Temazepam (Restoril) 15 mg HSPRN PRN ORAL Insomnia 07/07/16 16:45 07/14/16 16:44 RIVER CHAUDHARI Jul 09, 2016 18:47
[2016-07-10 00:19] VITALS: BP 124/64
[2016-07-10 04:17] VITALS: BP 121/70
[2016-07-10 05:54] LABS: BASOPHILS % (AUTO) 1.1 % (0.0-2.0); EOSINOPHILS % (AUTO) 2.4 % (0.0-3.0); LYMPHOCYTES % (AUTO) 24.1 % (20.0-45.0); MEAN CORPUSCULAR HEMOGLOBIN 29.3 PG (27.0-31.0); MEAN CORPUSCULAR HGB CONC 31.9 G/DL (32.0-36.0); MEAN CORPUSCULAR VOLUME 92 FL (80-99); MEAN PLATELET VOLUME 8.6 FL (6.5-10.1); MONOCYTES % (AUTO) 9.2 % (1.0-10.0); NEUTROPHILS % (AUTO) 63.2 % (45.0-75.0); PLATELET COUNT 337 K/UL (150-450); RED BLOOD COUNT 5.25 M/UL (4.70-6.10); RED CELL DISTRIBUTION WIDTH 14.5 % (11.6-14.8); WHITE BLOOD COUNT 14.1 K/UL (4.8-10.8)
[2016-07-10 06:33] LABS: ANION GAP 16 (5-15); CARBON DIOXIDE 26 mEQ/L (20-30); CHLORIDE 97 mEQ/L (98-107); CREATININE 1.2 mg/dL (0.7-1.2); GLOMERULAR FILTRATION RATE > 60 mL/min (>60); HEMOLYSIS 3; POTASSIUM 3.3 mEQ/L (3.4-4.9); SODIUM 139 mEQ/L (135-145)
[2016-07-10 08:00] VITALS: BP 106/49
[2016-07-10] MEDS: Heparin 5000 units/ml inj SUBQ SCH (09:33)
--- NOTE | 2016-07-10 09:42 | Cardiology Report ---
APPROVED REPORT EXAM: Two-dimensional and M-mode echocardiogram with Doppler and color Doppler. INDICATION Left ventricular function M-Mode DIMENSIONS IVSd1.7 (0.7-1.1cm)Left Atrium (MM)4.9 (1.6-4.0cm) LVDd4.7 (3.5-5.6cm)Aortic Root3.0 (2.0-3.7cm) PWd0.8 (0.7-1.1cm)Aortic Cusp Exc.1.5 (1.5-2.0cm) LVDs4.1 (2.5-4.0cm) PWs0.9 cm Normal left ventricular chamber size. Hypokinesis fo septum and posterior and inferior wall , the lateral arriaga, apex and anterior wall seem to function adequately Left ventricular ejection fraction estimated to be 35-40%. Mild left ventricular hypertrophy. Small posterior pericardial effusion. Right cardiac chamber sizes are within normal limits. Mild left atrial enlargement by 2D. Focal aortic valve sclerosis with adequate cusp excursion Thickened mitral valve leaflets with normal excursion. Mitral annulus and aortic root calcification. Pulmonic valve not well visualized. Normal tricuspid valve structure. IVC is normal in size with physiologic collapse. A color flow and spectral Doppler study was performed and revealed: No aortic regurgitation. No mitral regurgitation. Left ventricular diastolic dysfunction mildly abnormal No tricuspid regurgitation.
[2016-07-10 12:00] VITALS: BP 125/85
--- NOTE | 2016-07-10 12:28 | General Progress Note ---
Assessment/Plan Problem List: (1) CHF exacerbation ICD Codes: I50.9 - Heart failure, unspecified SNOMED: 66954813 Qualifiers: Qualified Codes: I50.9 - Heart failure, unspecified (2) Substance abuse ICD Codes: F19.10 - Other psychoactive substance abuse, uncomplicated SNOMED: 22487886 (3) Dyspnea ICD Codes: R06.00 - Dyspnea, unspecified SNOMED: 314771011 (4) COPD (chronic obstructive pulmonary disease) ICD Codes: J44.9 - Chronic obstructive pulmonary disease, unspecified SNOMED: 38214124 (5) Respiratory failure, acute ICD Codes: J96.00 - Acute respiratory failure, unspecified whether with hypoxia or hypercapnia SNOMED: 09300550 Status: stable, progressing, tolerating diet Assessment/Plan o2 pulm tx detox cbc bmp am Subjective Constitutional: Reports: weakness Allergies: Coded Allergies: No Known Allergies (Unverified , 07/07/16) All Systems: reviewed and negative except above Subjective sitting on bed calm Objective Last 24 Hour Vital Signs Date Time Temp Pulse Resp B/P Pulse Ox O2 Delivery O2 Flow Rate FiO2 07/10/16 09:00 106/49 07/10/16 08:00 97.3 50 18 106/49 99 Room Air 07/10/16 07:40 95 18 Room Air 07/10/16 05:41 121/70 07/10/16 04:17 98.6 77 20 121/70 98 Room Air 07/10/16 04:00 87 07/10/16 00:19 98.5 51 20 124/64 96 Room Air 07/10/16 00:00 100 07/09/16 23:43 126/64 07/09/16 20:00 98.4 53 20 134/64 96 Room Air 07/09/16 20:00 96 07/09/16 19:49 78 18 Room Air 07/09/16 18:25 120/66 07/09/16 17:27 92/58 07/09/16 16:00 107 07/09/16 15:29 96.4 100 20 92/58 98 Room Air Intake and Output 07/09/16 07/10/16 19:00 07:00 Intake Total 420 ml 120 ml Output Total 1500 ml 1800 ml Balance -1080 ml -1680 ml Intake Oral 420 ml 120 ml Output Urine Total 1500 ml 1800 ml Laboratory Tests 07/09/16 16:25: Troponin I < 0.30 07/10/16 05:15: White Blood Count 14.1H, Red Blood Count 5.25, Hemoglobin 15.4, Hematocrit 48.2 , Mean Corpuscular Volume 92, Mean Corpuscular Hemoglobin 29.3, Mean Corpuscular Hemoglobin Concent 31.9L, Red Cell Distribution Width 14.5, Platelet Count 337, Mean Platelet Volume 8.6, Neutrophils (%) (Auto) 63.2, Lymphocytes (%) (Auto) 24.1, Monocytes (%) (Auto) 9.2, Eosinophils (%) (Auto) 2.4, Basophils (%) (Auto) 1.1, Sodium Level 139, Potassium Level 3.3L, Chloride Level 97L, Carbon Dioxide Level 26, Anion Gap 16H, Blood Urea Nitrogen 23, Creatinine 1.2, Estimat Glomerular Filtration Rate > 60, Glucose Level 118H, Calcium Level 9.0 Height (Feet): 5 Height (Inches): 11.00 Weight (Pounds): 246 General Appearance: alert EENT: normal ENT inspection Neck: normal alignment Cardiovascular: normal peripheral pulses, normal rate, regular rhythm Respiratory/Chest: chest wall non-tender, lungs clear, normal breath sounds Abdomen: normal bowel sounds, non tender, soft Extremities: normal inspection Edema: no edema noted Arm (L), no edema noted Arm (R), no edema noted Leg (L), no edema noted Leg (R), no edema noted Pedal (L), no edema noted Pedal (R), no edema noted Generalized Neurologic: responsive, motor weakness Skin: normal pigmentation, warm/dry CHERISE JAMES Jul 10, 2016 12:28
[2016-07-10 12:43] VITALS: BP 125/80
--- NOTE | 2016-07-10 13:06 | Pulmonology Progress Note ---
Assessment/Plan Problems: (1) Respiratory failure, acute (2) CHF exacerbation (3) COPD (chronic obstructive pulmonary disease) (4) Substance abuse Assessment/Plan sinus tachy of 110 decrease lasix to bid repeat cxr showed imrovement Echo shows EF of 30 optimize cardiac meds f/u cardiology recommendation wbc is stable at 14, no sign of infection Subjective ROS Limited/Unobtainable: No Constitutional: Reports: no symptoms HEENT: Repors: no symptoms Respiratory: Reports: no symptoms Cardiovascular: Reports: no symptoms Allergies: Coded Allergies: No Known Allergies (Unverified , 07/07/16) Objective Last 24 Hour Vital Signs Date Time Temp Pulse Resp B/P Pulse Ox O2 Delivery O2 Flow Rate FiO2 07/10/16 12:43 125/80 07/10/16 09:00 106/49 07/10/16 08:00 97.3 50 18 106/49 99 Room Air 07/10/16 07:40 95 18 Room Air 07/10/16 05:41 121/70 07/10/16 04:17 98.6 77 20 121/70 98 Room Air 07/10/16 04:00 87 07/10/16 00:19 98.5 51 20 124/64 96 Room Air 07/10/16 00:00 100 07/09/16 23:43 126/64 07/09/16 20:00 98.4 53 20 134/64 96 Room Air 07/09/16 20:00 96 07/09/16 19:49 78 18 Room Air 07/09/16 18:25 120/66 07/09/16 17:27 92/58 07/09/16 16:00 107 07/09/16 15:29 96.4 100 20 92/58 98 Room Air Intake and Output 07/09/16 07/10/16 19:00 07:00 Intake Total 420 ml 120 ml Output Total 1500 ml 1800 ml Balance -1080 ml -1680 ml Intake Oral 420 ml 120 ml Output Urine Total 1500 ml 1800 ml Objective General Appearance: WD/WN HEENT: normocephalic, atraumatic Respiratory/Chest: chest wall non-tender, lungs clear Cardiovascular: normal peripheral pulses, normal rate, regular rhythm Abdomen: normal bowel sounds, soft, non tender, no organomegaly Extremities: no cyanosis, no clubbing Skin: no rash, no lesions Neurologic/Psychiatric: newcomer hostess II-XII grossly normal Lymphatic: no neck adenopathy, no groin adenopathy Microbiology Date/Time Source Procedure Growth Status 07/08/16 18:00 Sputum Gram Stain - Final Complete 07/08/16 18:00 Sputum Sputum Culture - Final NORMAL UPPER RESPIRATORY JAILENE PRESENT Complete 07/07/16 22:00 Nasal Nares Right MRSA Culture - Final NO METHICILLIN RESISTANT STAPH AUREUS... Complete 07/07/16 22:00 Rectal Mucosa VRE Culture - Final NO VANCOMYCIN RESISTANT ENTEROCOCCUS ... Complete Laboratory Tests 07/09/16 16:25: Troponin I < 0.30 07/10/16 05:15: White Blood Count 14.1H, Red Blood Count 5.25, Hemoglobin 15.4, Hematocrit 48.2 , Mean Corpuscular Volume 92, Mean Corpuscular Hemoglobin 29.3, Mean Corpuscular Hemoglobin Concent 31.9L, Red Cell Distribution Width 14.5, Platelet Count 337, Mean Platelet Volume 8.6, Neutrophils (%) (Auto) 63.2, Lymphocytes (%) (Auto) 24.1, Monocytes (%) (Auto) 9.2, Eosinophils (%) (Auto) 2.4, Basophils (%) (Auto) 1.1, Sodium Level 139, Potassium Level 3.3L, Chloride Level 97L, Carbon Dioxide Level 26, Anion Gap 16H, Blood Urea Nitrogen 23, Creatinine 1.2, Estimat Glomerular Filtration Rate > 60, Glucose Level 118H, Calcium Level 9.0 Current Medications Medications (Trade) Dose Ordered Sig/Mer Route PRN Reason Start Time Stop Time Status Last Admin Dose Admin Acetaminophen (Tylenol) 650 mg Q4H PRN ORAL Fever 07/07/16 16:45 08/06/16 16:44 Albuterol/ Ipratropium (DuoNeb 0.5-3(2.5)mg/3ml) 3 ml EVERY 4 HOURS PRN HHN Shortness of Breath 07/07/16 16:45 07/12/16 16:44 Clonidine HCl (Catapres) 0.1 mg Q6H PRN ORAL For High Blood Pressure 07/08/16 06:45 08/07/16 06:44 Dextrose (Dextrose 50%) STAT PRN IV Hypoglycemia 07/07/16 16:45 08/06/16 16:44 Furosemide (Lasix) 40 mg EVERY 12 HOURS IV 07/09/16 21:00 08/08/16 20:59 07/10/16 09:29 Heparin Sodium (Porcine) (Heparin 5000 units/ml) 5,000 units EVERY 12 HOURS SUBQ 07/07/16 21:00 08/06/16 20:59 07/10/16 09:33 Irbesartan (Avapro) 75 mg DAILY ORAL 07/08/16 09:00 08/07/16 08:59 07/09/16 08:28 Isosorbide Dinitrate (Isordil) 10 mg Q6HR ORAL 07/08/16 00:00 08/07/16 00:00 07/10/16 12:43 Levofloxacin (Levaquin) 100 ml @ 100 mls/hr Q24H IVPB 07/08/16 14:00 07/15/16 13:59 07/09/16 13:41 Ondansetron HCl (Zofran) 4 mg Q6H PRN IVP Nausea & Vomiting 07/07/16 16:45 08/06/16 16:44 Polyethylene Glycol (Miralax) 17 gm DAILYPRN PRN ORAL Constipation 07/07/16 16:45 08/06/16 16:44 Promethazine HCl/ Codeine 5 ml 5 ml Q4H PRN ORAL For Cough 07/08/16 12:15 08/07/16 12:14 Temazepam (Restoril) 15 mg HSPRN PRN ORAL Insomnia 07/07/16 16:45 07/14/16 16:44 RIVER CHAUDHARI Jul 10, 2016 13:06
--- NOTE | 2016-07-10 14:29 | Diagnostic Imaging Report ---
APPROVED REPORT CPT Code: 25452 Present Symptoms Lower Extremity Pain: Bilateral BILATERAL: Imaging reveals a patent deep venous system bilaterally. There is no evidence of thrombus within the femoral, popliteal or tibial segments. The greater saphenous veins are also within normal limits. Doppler indicates normal spontaneous flow within these segments.
--- NOTE | 2016-07-11 15:19 | Discharge Summary ---
Discharge Summary Hospital Course Date of Admission Jul 07, 2016 at 15:22 Date of Discharge Jul 10, 2016 at 15:11 Admitting Diagnosis dyspnea HPI La Bhandari is a 51 year old male who was admitted on Jul 07, 2016 at 15:22 for Dyspnea Hospital Course dc summary #[id number] Discharge Condition Upon Discharge: stable Discharge Disposition Patient signed AMA Discharge Diagnoses: Minesh (Ottovin),Chelsi HATCH Jul 11, 2016 15:18
--- NOTE | 2016-07-12 03:58 | Discharge Summary 2 SIG ---
DATE OF ADMISSION: 07/07/2016 DATE OF DISCHARGE: 07/10/2016 REASON FOR ADMISSION: The patient is a 51-year-old male, who presented to emergency room with complaints of shortness of breath. The patient has a history of COPD and CHF. He reported increased cough and sputum production over the last few days. He denied pleuritic chest pain. He denies fever or chills. Workup in the emergency room revealed leukocytosis. Urine tox screen was positive for multiple substances including PCP, amphetamine and marijuana. Chest x-ray revealed cardiomegaly and left-sided atelectasis. Troponin was negative. ProBNP was elevated at 1435. The patient was given Lasix and antibiotic and transferred to telemetry for further management. EKG shows normal sinus rhythm. No ischemic changes. ADMITTING DIAGNOSES: Include, 1. Congestive heart failure exacerbation. 2. Polysubstance abuse. 3. Acute respiratory distress secondary to congestive heart failure exacerbation. HOSPITAL STAY: The patient was admitted to the telemetry. Supplemental oxygen and pulmonary toilet was provided as needed. The patient was started on empiric antibiotics. Sputum culture was checked and was negative. Troponin x3 were negative. Echocardiogram revealed ejection fraction of 35% to 40%. Cardiology evaluation was requested as well as the touch up painter. Per touch up painter, the patient immediately upon arrival started on diuresis. The patient was on fluid restriction and sodium restriction. Intake and output, electrolytes and renal parameters were closely monitored. Follow up chest x-ray revealed improvement in congestive changes after starting diuresis. Diuretic dose was decreased. Forest Logistics Manager recommended to avoid nephrotoxic and continue Lasix with strict intake and output monitoring. Electrolytes were replaced and were stable. Venous duplex bilateral lower extremity was negative. The patient was counseled on abstinence from the street drugs. The patient was stable for discharge. DISCHARGE DIAGNOSES: Include, 1. Congestive heart failure exacerbation 2. Cardiomyopathy. 3. Polysubstance abuse. 4. Acute respiratory distress. 5. Chronic obstructive pulmonary disease. 6. Hypokalemia. 7. Acute renal failure. DISCHARGE MEDICATION: Medical management and cardiomyopathy per manager of marketing recommendation given. DISCHARGE INSTRUCTIONS: The patient to follow up with the primary medical doctor. Shadi Bui D.O. I have been assigned to dictate discharge summary on this account and I was not involved in the patient's management. Chelsi Edge (vanchtein) NAaronPAaron DR: PEDRO JOB#: [id number] CC:
== END 2016-07-10 15:11 | disposition home or self-care (01) | DRG 194 ==
LOC: EMR 13:55 → 2E 15:22 → EDBEDREQ 16:01
DX: I50.9 Heart failure, unspecified (principal); J96.01 Acute respiratory failure with hypoxia; J44.9 Chronic obstructive pulmonary disease, unspecified; F19.10 Other psychoactive substance abuse, uncomplicated; I10 Essential (primary) hypertension; N17.9 Acute kidney failure, unspecified; E87.6 Hypokalemia
CPT/HCPCS: 36415; 71010; 80048; 80053; 80069; 80300; 82550; 82553; 83880; 84484; 85025; 87070; 87081; 87205; 93005; 93306; 93970; 94640; 94664; J8499